=== PATIENT | male | born 1985 | race African-American/Black ===

== ENCOUNTER 2016-05-19 14:31 | Emergency (ER) | payer OTHER ==
[~2016-05-19 14:31] MED LIST: ALBUTEROL17 GM INH; AMOXICILLIN875 MG PO; AUGMENTIN875 MG PO; DECADRON PO; FLEXERIL10 MG PO; HYDROMET SYRUP480 ML PO; IBUPROFEN800 MG PO; LORTAB 5-325 M1 EACH PO; MAGIC MOUTHWASH PO; NO MEDICATIONS; PYRIDIUM100 MG PO; ULTRAM PO; VOLTAREN75 MG PO
== END 2016-05-19 14:35 | disposition home or self-care (01) ==
LOC: SED 14:31
DX: S29.012A Strain of muscle and tendon of back wall of thorax, initial encounter (principal); F17.210 Nicotine dependence, cigarettes, uncomplicated; X50.0XXA Overexertion from strenuous movement or load, initial encounter; Y92.69 Other specified industrial and construction area as the place of occurrence of the external cause; Y99.0 Civilian activity done for income or pay
CPT/HCPCS: 99283